=== PATIENT | male | born 1995 | race Caucasian/White ===

== ENCOUNTER 2019-08-04 15:59 | Emergency (ER) | payer OTHER ==
[2019-08-04] MEDS ORDERED: IPRATROPIUM BROM 0.5MG/2.5ML ONE (16:33)
[2019-08-04] MEDS ORDERED: LEVALBUTEROL 1.25 MG/3 ML NEB ONE (16:33)
--- NOTE | 2019-08-04 17:00 | RAD REPORT ---
EXAM DESCRIPTION: RAD - Chest Pa And Lat (2 Views) - 08/04/2019 4:31 pm CLINICAL HISTORY: Cough;Dyspnea COMPARISON: June 2013 TECHNIQUE: PA and lateral views of the chest were obtained. FINDINGS: The lungs are clear. Heart size is normal and central vasculature is within normal limit s. No pleural effusion or pneumothorax seen. No acute bony finding noted. No aortic abnormality. IMPRESSION: No acute cardiopulmonary process.
--- NOTE | 2019-08-04 17:16 | ER ---
Nurse's Notes [facility] Name: Severiano Dejesus Age: 24 yrs Sex: Male : 1995 Arrival Date: 08/04/2019 Time: 16:02 Bed 7 Private MD: Diagnosis: Acute sinusitis Presentation: 08/04 16:09 Presenting complaint: Patient states: cough, congestion, sinus pressure, right eat pain aa5 and SOB on exertion that began 1 week ago. Transition of care: patient was not received from another setting of care. Onset of symptoms was July 2019. Risk Assessment: Do you want to hurt yourself or someone else? Patient reports no desire to harm self or others. Initial Sepsis Screen: Does the patient meet any 2 criteria? No. Patient's initial sepsis screen is negative. Does the patient have a suspected source of infection? No. Patient's initial sepsis screen is negative. Care prior to arrival: None. 16:09 Method Of Arrival: Ambulatory aa5 16:09 Acuity: JOSE CARLOS 3 aa5 Historical: - Allergies: 16:09 No Known Allergies; aa5 - PMHx: 16:09 Asthma; aa5 - PSHx: 16:09 None; aa5 - Immunization history:: Flu vaccine is not up to date. - Social history:: Smoking status: Patient uses tobacco products, denies chronic smoking, but will smoke occasionally. - Ebola Screening: : No symptoms or risks identified at this time. Screenin:50 Abuse screen: Denies threats or abuse. Denies injuries from another. Nutritional ph screening: No deficits noted. Tuberculosis screening: No symptoms or risk factors identified. Fall Risk None identified. Assessment: 16:30 General: Appears in no apparent distress. comfortable, slender, well groomed, Behavior ph is calm, cooperative, appropriate for age. Pain: Denies pain. Neuro: Level of Consciousness is awake, alert, obeys commands, Oriented to person, place, time, situation. Cardiovascular: Capillary refill < 3 seconds in bilateral fingers Patient's skin is warm and dry. Respiratory: Reports shortness of breath cough that is non-productive, Airway is patent Respiratory effort is even, unlabored, Respiratory pattern is regular, symmetrical, Breath sounds are clear bilaterally. GI: Patient currently denies abdominal pain, nausea, vomiting. EENT: Reports nasal congestion nasal discharge pain when swallowing. Derm: Skin is intact, is healthy with good turgor, Skin is pink, warm \T\ dry. Musculoskeletal: Circulation, motion, and sensation intact. Range of motion: intact in all extremities. Vital Signs: 16:10 BP 135 / 79; Pulse 112; Resp 20 S; Temp 99.4(O); Pulse Ox 95% ; Weight 86.18 kg (R); aa5 Height 5 ft. 8 in. (172.72 cm) (R); 17:48 BP 127 / 76; Pulse 104; Resp 18; Temp 99.0; Pulse Ox 97% on R/A; ph 16:10 Body Mass Index 28.89 (86.18 kg, 172.72 cm) aa5 ED Course: 16:02 Patient arrived in ED. mr 16:04 Anna Jerez FNP-C is PHCP. kb 16:04 Charly Carpio MD is Attending Physician. kb 16:10 Triage completed. aa5 16:10 Arm band placed on. aa5 16:12 Lynette Conley, RN is Primary Nurse. ph 16:31 Chest Pa And Lat (2 Views) XRAY In Process Unspecified. EDMS 16:49 Patient has correct armband on for positive identification. Bed in low position. Call ph light in reach. Side rails up X 1. Pulse ox on. NIBP on. 17:47 No provider procedures requiring assistance completed. Patient did not have IV access ph during this emergency room visit. Administered Medications: 16:45 Drug: Xopenex 1.25 mg Route: Inhalation; ph 17:49 Follow up: Response: No adverse reaction ph 16:45 Drug: AtroVENT Aerosol 0.5 mg Route: Inhalation; ph 17:48 Follow up: Response: No adverse reaction ph 17:23 Drug: predniSONE 40 mg Route: PO; ph 17:49 Follow up: Response: No adverse reaction ph Outcome: 17:15 Discharge ordered by . kb 17:47 Discharged to home ambulatory, with family. ph 17:47 Condition: good 17:47 Discharge instructions given to patient, Instructed on discharge instructions, follow up and referral plans. medication usage, Demonstrated understanding of instructions, follow-up care, medications, Prescriptions given X 2. 17:49 Patient left the ED. ph Signatures: Dispatcher [employer] EDKY Anna Jerez FNP-C SUPREME COURT JUDGE-Angie Urrutia mr Duc, Melvina, RN RN aa5 Lynette Conley RN RN ph
--- NOTE | 2019-08-04 17:16 | EDPHYS ---
Physician Documentation [facility] Name: Severiano Dejesus Age: 24 yrs Sex: Male : 1995 Arrival Date: 08/04/2019 Time: 16:02 Bed 7 Private MD: ED Physician Charly Carpio HPI: 08/04 16:29 This 24 yrs old Male presents to ER via Ambulatory with complaints of Flu kb Symptoms. 16:29 The patient or guardian reports cough, that is intermittent, described as mild, with no kb sputum, difficulty breathing, flu symptoms, low-grade fever, myalgias. Onset: The symptoms/episode began/occurred 1 week(s) ago. Severity of symptoms: At their worst the symptoms were moderate, in the emergency department the symptoms are unchanged. Modifying factors: The symptoms are alleviated by nothing, the symptoms are aggravated by nothing. Associated signs and symptoms: Pertinent positives: earache, fever. The patient has not experienced similar symptoms in the past. The patient has not recently seen a physician. Historical: - Allergies: 16:09 No Known Allergies; aa5 - PMHx: 16:09 Asthma; aa5 - PSHx: 16:09 None; aa5 - Immunization history:: Flu vaccine is not up to date. - Social history:: Smoking status: Patient uses tobacco products, denies chronic smoking, but will smoke occasionally. - Ebola Screening: : No symptoms or risks identified at this time. ROS: 16:26 Neck: Negative for injury, pain, and swelling, Cardiovascular: Negative for chest pain, kb palpitations, and edema, Abdomen/GI: Negative for abdominal pain, nausea, vomiting, diarrhea, and constipation, Back: Negative for injury and pain, MS/Extremity: Negative for injury and deformity, Skin: Negative for injury, rash, and discoloration, Neuro: Negative for headache, weakness, numbness, tingling, and seizure. 16:26 Constitutional: Positive for chills, fever, malaise. 16:26 ENT: Positive for ear pain, sinus congestion, sinus pain, sore throat. 16:26 Respiratory: Positive for cough, shortness of breath, Negative for dyspnea on exertion, hemoptysis, orthopnea, pleurisy, sputum production, wheezing. Exam: 16:26 Constitutional: This is a well developed, well nourished patient who is awake, alert, kb and in no acute distress. Head/Face: Normocephalic, atraumatic. Neck: Trachea midline, no thyromegaly or masses palpated, and no cervical lymphadenopathy. Supple, full range of motion without nuchal rigidity, or vertebral point tenderness. No Meningismus. Chest/axilla: Normal chest wall appearance and motion. Nontender with no deformity. No lesions are appreciated. Cardiovascular: Regular rate and rhythm with a normal S1 and S2. No gallops, murmurs, or rubs. Normal PMI, no JVD. No pulse deficits. Respiratory: Lungs have equal breath sounds bilaterally, clear to auscultation and percussion. No rales, rhonchi or wheezes noted. No increased work of breathing, no retractions or nasal flaring. Abdomen/GI: Soft, non-tender, with normal bowel sounds. No distension or tympany. No guarding or rebound. No evidence of tenderness throughout. Skin: Warm, dry with normal turgor. Normal color with no rashes, no lesions, and no evidence of cellulitis. MS/ Extremity: Pulses equal, no cyanosis. Neurovascular intact. Full, normal range of motion. Neuro: Awake and alert, GCS 15, oriented to person, place, time, and situation. Cranial nerves II-XII grossly intact. Motor strength 5/5 in all extremities. Sensory grossly intact. Cerebellar exam normal. Normal gait. 16:26 Head/face: Sinus tenderness, that is mild, is located over the right frontal sinus, left frontal sinus, right ethmoid sinus, left ethmoid sinus, right maxillary sinus and left maxillary sinus. 16:26 ENT: External ear(s): are unremarkable, Ear canal(s): are normal, TM's: fluid levels, on the right, Nose: is normal, Mouth: is normal, Posterior pharynx: is normal. Vital Signs: 16:10 BP 135 / 79; Pulse 112; Resp 20 S; Temp 99.4(O); Pulse Ox 95% ; Weight 86.18 kg (R); aa5 Height 5 ft. 8 in. (172.72 cm) (R); 17:48 BP 127 / 76; Pulse 104; Resp 18; Temp 99.0; Pulse Ox 97% on R/A; ph 16:10 Body Mass Index 28.89 (86.18 kg, 172.72 cm) aa5 MDM: 16:12 Patient medically screened. [facility] 16:29 Data reviewed: vital signs, nurses notes. Data interpreted: Pulse oximetry: on room air kb is 95 %. Interpretation: normal. 17:13 Counseling: I had a detailed discussion with the patient and/or guardian regarding: the kb historical points, exam findings, and any diagnostic results supporting the discharge/admit diagnosis, lab results, radiology results, the need for outpatient follow up, a family practitioner, to return to the emergency department if symptoms worsen or persist or if there are any questions or concerns that arise at home. 08/04 16:18 Order name: Flu; Complete Time: 17:07 kb 08/04 16:18 Order name: Strep; Complete Time: 17:07 kb 08/04 16:18 Order name: Chest Pa And Lat (2 Views) XRAY; Complete Time: 17:07 kb 08/04 17:08 Order name: Throat Culture EDMS Administered Medications: 16:45 Drug: Xopenex 1.25 mg Route: Inhalation; ph 17:49 Follow up: Response: No adverse reaction ph 16:45 Drug: AtroVENT Aerosol 0.5 mg Route: Inhalation; ph 17:48 Follow up: Response: No adverse reaction ph 17:23 Drug: predniSONE 40 mg Route: PO; ph 17:49 Follow up: Response: No adverse reaction ph Disposition: 08/05 07:25 Co-signature as Attending Physician, Charly Carpio MD I agree with the assessment and [facility] plan of care. Disposition: 08/04/19 17:15 Discharged to Home. Impression: Acute sinusitis. - Condition is Stable. - Discharge Instructions: Sinusitis, Adult, [id number]. - Prescriptions for Prednisone 20 mg Oral Tablet - take 1 tablet by ORAL route once daily for 5 days; 5 tablet. Albuterol Sulfate 90 mcg/actuation - inhale 1-2 puff by INHALATION route every 4-6 hours; 1 Inhaler. - Work release form, Medication Reconciliation Form, Thank You Letter, Antibiotic Education, Prescription Opioid Use form. - Follow up: Emergency Department; When: As needed; Reason: Worsening of condition. Follow up: Private Physician; When: 2 - 3 days; Reason: Recheck today's complaints, Continuance of care, Re-evaluation by your physician. Signatures: Dispatcher [employer] EDAnna Mari, TOLL TESTBOARD WORKER-C TOLL TESTBOARD WORKER-Ckb Charly Carpio MD MD cha Calderon, Audri, RN RN aa5 Lynette Conley, RN RN ph Corrections: (The following items were deleted from the chart) 08/04 17:49 17:15 08/04/2019 17:15 Discharged to Home. Impression: Acute sinusitis. Condition is ph Stable. Forms are Medication Reconciliation Form, Thank You Letter, Antibiotic Education, Prescription Opioid Use. Follow up: Emergency Department; When: As needed; Reason: Worsening of condition. Follow up: Private Physician; When: 2 - 3 days; Reason: Recheck today's complaints, Continuance of care, Re-evaluation by your physician. kb
[2019-08-04] MEDS ORDERED: predniSONE 20 MG TAB ONE (17:28)
[2019-08-04 17:55] VITALS: BP 127/76; TEMP 99; O2SAT 97
== END 2019-08-04 17:49 | disposition home or self-care (01) ==
LOC: ER 15:59
DX: J01.90 Acute sinusitis, unspecified (principal); Z72.0 Tobacco use
CPT/HCPCS: 87070; 87081; 87804 ×2; 71046; 99284; J7512